=== PATIENT | female | born 1995 | race Caucasian/White ===

== ENCOUNTER 2018-01-05 21:16 | Inpatient (IN) | payer BC, MEDICAID ==
[2018-01-05] MEDS ORDERED: hydrOXYzine HCl 50 MG Tab PO SCH (22:00)
[2018-01-05] MEDS ORDERED: Sodium Chloride 0.9% 10 ML Syringe FLUSH PRN (23:26)
--- NOTE | 2018-01-05 23:26 | PCM.LDHP ---
L&D History of Present Illness - General Date of Service: 01/05/18 Admit Problem/Dx: Patient Status Order with Admit Dx/Problem 01/05/18 21:32 Patient Status [ADT] Routine Admission Diagnosis/Problem Admission Diagnosis/Problem Source of Information: Patient History Limitations: Reports: No Limitations - History of Present Illness Introduction:: 22-year-old MARLEN 01/19/18 estimated gestational age 38 weeks 0 days. Patient presented to labor and delivery with complaint of elevated blood pressure home. Patient also complains of ankle swelling and face swelling no headache blurred vision double vision visual disturbances or right upper quadrant pain. The B strep is positive. Patient is having contractions 5 minutes apart. She is not able to feel the contractions at this time. Blood type B positive, antibody screen negative, hematocrit on 07/08/17 38.1 with hemoglobin of 13.5 platelets 270,000. Rubella positive, hepatitis B surface antigen nonreactive, HIV normal, Chlamydia and GC probe negative. The patient had 1 hour OB glucose screen of 106. 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 (See Below) Other OB/BYN History: LMP December 1 PARA 0 MISCARRIAGE 0 - Past Surgical History GI Surgical History: Reports: Cholecystectomy Social & Family History - Family History Family Medical History: Noncontributory - Tobacco Use Smoking Status *Q: Current Every Day Smoker Years of Tobacco use: 4 Packs/Tins Daily: 0.2 - Recreational Drug Use Recreational Drug Use: No - Living Situation & Occupation Living situation: Reports: Single Occupation: Employed H&P Review of Systems - Review of Systems: Review Of Systems: See Below General: Reports: No Symptoms HEENT: Reports: No Symptoms Pulmonary: Reports: No Symptoms Cardiovascular: Reports: No Symptoms Gastrointestinal: Reports: No Symptoms Genitourinary: Reports: No Symptoms Musculoskeletal: Reports: No Symptoms Skin: Reports: No Symptoms Psychiatric: Reports: No Symptoms Neurological: Reports: No Symptoms Hematologic/Lymphatic: Reports: No Symptoms Immunologic: Reports: No Symptoms L&D Exam - Exam Exam: See Below - OB Specific Fundal Height In cm: 39 Contraction Duration (sec): 60 Contraction Frequency (min): 35 Contraction Intensity: Mild Movement: Active Heart Tones: Present Heart Tones per Min: 135 Heart Rate (FHR) Variability: Moderate (6-25 bmp) Presentation: Vertex - Meyer Score Meyer Score Cervix Position: Posterior Meyer Score Consistency: Soft Meyer Score Effacement: 31-50% Meyer Score Dilation: 1-2 cm Meyer Score 's Station: -2 Meyer Score Total: 5 - Exam General: Alert, Oriented HEENT: Conjunctiva Clear, Mucosa Moist & [place] Neck: Supple, Trachea Midline Lungs: Clear to Auscultation, Normal Respiratory Effort Cardiovascular: Regular Rate, Regular Rhythm GI/Abdominal Exam: Normal Bowel Sounds, Soft, Non-Tender Genitourinary: Normal external exam, Normal bimanual exam, Normal speculum exam Extremities: Normal Inspection, Normal Range of Motion, Non-Tender, Normal Capillary Refill, Pedal Edema (1+) Skin: Warm, Dry, Intact Neurological: Reflexes Equal Bilateral DTR: 1+: Bicep (L), Bicep (R), Achilles (L) (No clonus), Achilles (R) (No clonus ), 3+: Patella (L) (No clonus), Patella (R) (No clonus) Psychiatric: Alert, Normal Affect, Normal Mood - Patient Data Lab Results Last 24 hrs: Laboratory Results - last 24 hr 01/05/18 01/05/18 01/05/18 Range/Units 21:45 21:45 22:45 WBC 9.59 (3.98-10.04) K/mm3 RBC 4.10 (3.98-5.22) M/mm3 Hgb 12.1 (11.2-15.7) gm/L Hct 35.7 (34.1-44.9) % MCV 87.1 (79.4-94.8) fl MCH 29.5 (25.6-32.2) pg MCHC 33.9 (32.2-35.5) g/dl RDW Std Deviation 39.8 (36.4-46.3) fL Plt Count 276 (182-369) K/mm3 MPV 10.7 (9.4-12.3) fl Neut % (Auto) 72.3 H (34.0-71.1) % Lymph % (Auto) 19.9 (19.3-51.7) % [place] % (Auto) 6.6 (4.7-12.5) % Eos % (Auto) 0.9 (0.7-5.8) Baso % (Auto) 0.1 (0.1-1.2) % Neut # (Auto) 6.93 H (1.56-6.13) K/mm3 Lymph # (Auto) 1.91 (1.18-3.74) K/mm3 [place] # (Auto) 0.63 H (0.24-0.36) K/mm3 Eos # (Auto) 0.09 (0.04-0.36) K/mm3 Baso # (Auto) 0.01 (0.01-0.08) K/mm3 BUN 7 (7-18) mg/dL Creatinine 0.6 (0.55-1.02) mg/dL Est Cr Clr Drug Dosing TNP Estimated GFR (MDRD) > 60 (>60) mL/min Uric Acid 3.7 (2.6-6.0) mg/dL AST 13 L (15-37) U/L ALT 21 (14-59) U/L Alkaline Phosphatase 94 (46-116) U/L Lactate Dehydrogenase 138 (81-234) U/L Urine Color Yellow (Yellow) Urine Appearance Clear (Clear) Urine pH 6.0 (5.0-8.0) Ur Specific [place] > or = 1.030 (1.005-1.030) Urine Protein 1+ H (Negative) Urine Glucose (UA) Trace H (Negative) Urine Ketones Trace H (Negative) Urine Occult Blood Negative (Negative) Urine Nitrite Negative (Negative) Urine Bilirubin Negative (Negative) Urine Urobilinogen 0.2 (0.2-1.0) Ur Leukocyte Esterase Negative (Negative) Urine RBC 0-5 (0-5) /hpf Urine WBC 0-5 (0-5) /hpf Ur Epithelial Cells 5-10 H (0-5) /hpf Urine Bacteria Moderate H (FEW) /hpf Urine Mucus Many H (FEW) /hpf Result Diagrams: 01/05/18 21:45 01/05/18 21:45 - Problem List (1) 38 weeks gestation of SNOMED Code(s): 72412307 ICD Code: Z3A.38 - 38 WEEKS GESTATION OF Status: Acute Current Visit: Yes (2) Hypertension affecting in third trimester SNOMED Code(s): 039358025, 727454402 ICD Code: O16.3 - UNSPECIFIED MATERNAL HYPERTENSION, THIRD TRIMESTER Status : Acute Current Visit: Yes Problem List Initiated/Reviewed/Updated: No Orders Last 24hrs: Active Orders 24 hr Category Date Time Status Patient Status [ADT] Routine ADT 01/05/18 21:32 Active Non Stress Test [RC] PER UNIT ROUTINE Care 01/05/18 21:32 Active Vital Signs [RC] PER UNIT ROUTINE Care 01/05/18 21:32 Active Regular Diet [DIET] Diet 01/05/18 Breakfast Active BPP wo NST [US] Stat Exams 01/05/18 21:32 Taken UA W/MICROSCOPIC [URIN] Stat Lab 01/05/18 22:45 Ordered PIH Panel [OM.PC] Stat Oth 01/05/18 21:32 Ordered Resuscitation Status Routine Resus Stat 01/05/18 21:32 Ordered Assessment/Plan Comment:: Will observe overnight extended OB check possible induction in the morning we' ll discuss case with Dr. Herrera.
[2018-01-06] MEDS: Ampicillin 2 GM in Sodium Chloride 0.9% 100 ML IV ONE ×2 (00:14→09:39)
[2018-01-06] MEDS: Lactated Ringers 1,000 ML IV SCH ×4 (00:14→21:17)
[2018-01-06] MEDS ORDERED: hydrOXYzine HCl 50 MG Tab PO ONE ×3 (01:06→04:00)
[2018-01-06] MEDS: Clindamycin Phosphate 900 MG in Sodium Chloride 0.9% 100 ML IV SCH (01:12)
[2018-01-06] MEDS ORDERED: Ampicillin 1 GM in Sodium Chloride 0.9% 100 ML IV SCH (04:00)
--- NOTE | 2018-01-06 07:36 | US ---
Biophysical profile: Multiple real-time images were obtained. Comparison: No previous exam. Dates: Current ultrasound: MARLEN 01/21/18, gestational age 37 weeks 5 days presentation: Cephalic Placenta: Posterior Amniotic fluid: RADHA 12.20 cm Measurements: BPD: 9.27 cm - 37 weeks 5 days Head circumference: 33.1 cm - 37 weeks 6 days Abdominal circumference: 34.08 cm - 38 weeks 0 days Femur length: 7.25 cm - 37 weeks 1 day Estimated weight: 3290 g (7 lbs. 4 oz.), estimated weight at the 61st percentile for age by current ultrasound Heart rate: 146 bpm Cervical length: Not seen, not measured Biophysical profile: movement 2, breathing movement 2, tone 2, amniotic fluid volume 2 Impression: 1. Single intrauterine fetus currently cephalic in presentation. Dates as noted above. 2. 8 out of 8 on biophysical profile. Diagnostic code #1 Agree with preliminary report issued by [facility] ([facility] preliminary report dictated on 01/06/18, 12:11 AM Central Time)
[2018-01-06] MEDS ORDERED: Misoprostol 25 MCG (1/4 of 100 MCG) Tab ONE (08:46)
[2018-01-06] MEDS ORDERED: Sodium Chloride 0.9% 10 ML Syringe FLUSH PRN (08:58)
[2018-01-06] MEDS ORDERED: Nalbuphine 20 MG/1 ML Amp IVPUSH PRN (09:00)
[2018-01-06] MEDS: Misoprostol 25 MCG (1/4 of 100 MCG) Tab VAG SCH ×3 (09:00→17:12)
[2018-01-06] MEDS ORDERED: Penicillin G Potassium 5 MILLUNITS in Sodium Chloride 0.9% 100 ML IV ONE (09:15)
[2018-01-06] MEDS ORDERED: Oxytocin/Lactated Ringers 10 UNIT/1,000 ML BAG IV SCH (09:15)
[2018-01-06] MEDS: Penicillin G Potassium 2.5 MILLUNITS in Sodium Chloride 0.9% 100 ML IV SCH ×3 (13:04→21:02)
--- NOTE | 2018-01-06 14:00 | PCM.PREANE ---
Preanesthetic Assessment - Procedure Proposed Procedure: [facility]ILBUR - Anesthesia/Transfusion/Family Hx Anesthesia History: Prior Anesthesia Without Reaction Transfusion History: No Prior Transfusion(s) - Review of Systems General: No Symptoms Pulmonary: No Symptoms Cardiovascular: No Symptoms Gastrointestinal: Other (GERD) Neurological: No Symptoms Other: Reports: None - Physical Assessment NPO Status Date: 01/06/18 NPO Status Time: 13:00 Pulse: 121 O2 Sat by Pulse Oximetry: 97 Respiratory Rate: 20 Blood Pressure: 158/95 Vital Signs: Last Vital Signs Temp 36.4 C 01/06/18 02:49 Pulse 121 H 01/06/18 09:47 Resp 20 01/06/18 02:49 BP 158/95 H 01/06/18 09:47 Pulse Ox 97 01/06/18 02:49 Height: 1.7 m Weight: 143.789 kg ASA Class: 2 Mental Status: Alert & Oriented x3 Airway Class: Mallampati = 2 Dentition: Reports: Normal Dentition Thyro-Mental Finger Breadths: 3 Mouth Opening Finger Breadths: 3 ROM/Head Extension: Full Lungs: Clear to Auscultation, Normal Respiratory Effort Cardiovascular: Regular Rate, Regular Rhythm - Lab Values: Laboratory Last Values WBC 7.33 K/mm3 (3.98-10.04) 01/06/18 09:32 RBC 3.94 M/mm3 (3.98-5.22) L 01/06/18 09:32 Hgb 11.6 gm/L (11.2-15.7) 01/06/18 09:32 Hct 34.6 % (34.1-44.9) 01/06/18 09:32 MCV 87.8 fl (79.4-94.8) 01/06/18 09:32 MCH 29.4 pg (25.6-32.2) 01/06/18 09:32 MCHC 33.5 g/dl (32.2-35.5) 01/06/18 09:32 RDW Std Deviation 40.2 fL (36.4-46.3) 01/06/18 09:32 Plt Count 250 K/mm3 (182-369) 01/06/18 09:32 MPV 10.5 fl (9.4-12.3) 01/06/18 09:32 Neut % (Auto) 73.3 % (34.0-71.1) H 01/06/18 09:32 Lymph % (Auto) 17.6 % (19.3-51.7) L 01/06/18 09:32 [place] % (Auto) 7.2 % (4.7-12.5) 01/06/18 09:32 Eos % (Auto) 1.5 (0.7-5.8) 01/06/18 09:32 Baso % (Auto) 0.1 % (0.1-1.2) 01/06/18 09:32 Neut # (Auto) 5.37 K/mm3 (1.56-6.13) 01/06/18 09:32 Lymph # (Auto) 1.29 K/mm3 (1.18-3.74) 01/06/18 09:32 [place] # (Auto) 0.53 K/mm3 (0.24-0.36) H 01/06/18 09:32 Eos # (Auto) 0.11 K/mm3 (0.04-0.36) 01/06/18 09:32 Baso # (Auto) 0.01 K/mm3 (0.01-0.08) 01/06/18 09:32 Fibrinogen 458 mg/dL (187-446) H 01/05/18 21:45 Fibrin Degrad Products > 5 but < 20 ug/ml ug/mL (<5) H 01/05/18 21:45 BUN 7 mg/dL (7-18) 01/05/18 21:45 Creatinine 0.6 mg/dL (0.55-1.02) 01/05/18 21:45 Est Cr Clr Drug Dosing TNP 01/05/18 21:45 Estimated GFR (MDRD) > 60 mL/min (>60) 01/05/18 21:45 Uric Acid 3.7 mg/dL (2.6-6.0) 01/05/18 21:45 AST 13 U/L (15-37) L 01/05/18 21:45 ALT 21 U/L (14-59) 01/05/18 21:45 Alkaline Phosphatase 94 U/L (46-116) 01/05/18 21:45 Lactate Dehydrogenase 138 U/L (81-234) 01/05/18 21:45 Urine Color Yellow (Yellow) 01/05/18 22:45 Urine Appearance Clear (Clear) 01/05/18 22:45 Urine pH 6.0 (5.0-8.0) 01/05/18 22:45 Ur Specific [place] > or = 1.030 (1.005-1.030) 01/05/18 22:45 Urine Protein 1+ (Negative) H 01/05/18 22:45 Urine Glucose (UA) Trace (Negative) H 01/05/18 22:45 Urine Ketones Trace (Negative) H 01/05/18 22:45 Urine Occult Blood Negative (Negative) 01/05/18 22:45 Urine Nitrite Negative (Negative) 01/05/18 22:45 Urine Bilirubin Negative (Negative) 01/05/18 22:45 Urine Urobilinogen 0.2 (0.2-1.0) 01/05/18 22:45 Ur Leukocyte Esterase Negative (Negative) 01/05/18 22:45 Urine RBC 0-5 /hpf (0-5) 01/05/18 22:45 Urine WBC 0-5 /hpf (0-5) 01/05/18 22:45 Ur Epithelial Cells 5-10 /hpf (0-5) H 01/05/18 22:45 Urine Bacteria Moderate /hpf (FEW) H 01/05/18 22:45 Urine Mucus Many /hpf (FEW) H 01/05/18 22:45 - Allergies Allergies/Adverse Reactions: Allergies Allergy/AdvReac Type Severity Reaction Status Date / Time No Known Allergies Allergy Verified 01/24/16 12:21 - Blood Blood Available: No Product(s) Available: None - Anesthesia Plan Pre-Op Medication Ordered: None - Acknowledgements Anesthesia Type Planned: Epidural Pt an Appropriate Candidate for the Planned Anesthesia: Yes Alternatives and Risks of Anesthesia Discussed w Pt/Guardian: Yes Pt/Guardian Understands and Agrees with Anesthesia Plan: Yes PreAnesthesia Questionnaire HEENT History: Reports: Impaired Vision Other 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 History: 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 glasses 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 OB/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 History: LMP December 1 PARA 0 MISCARRIAGE 0 Musculoskeletal History: Reports: Other (See Below) Other Musculoskeletal History: hx fx arm as child - Past Surgical History GI Surgical History: Reports: Cholecystectomy Musculoskeletal Surgical History: Reports: None - SUBSTANCE USE Smoking Status *Q: Current Every Day Smoker Tobacco Use Within Last Twelve Months: Cigarettes Second Hand Smoke Exposure: No Recreational Drug Use History: No - HOME MEDS Home Medications: Home Meds oxyCODONE HCl/Acetaminophen [Percocet 5-325 mg Tablet] 1 - 2 each PO Q4H PRN # 10 tablet 01/24/16 [Rx] - CURRENT (IN HOUSE) MEDS Current Meds: Current Medications Hydroxyzine HCl (Atarax) 50 mg PO BEDTIME GORDY Lactated Ringer's (Ringers, Lactated) 1,000 mls @ 150 mls/hr IV ASDIRECTED GORDY Last Admin: 01/06/18 00:14 Dose: 150 mls/hr Lactated Ringer's (Ringers, Lactated) 1,000 mls @ 100 mls/hr IV ASDIRECTED GORDY Last Admin: 01/06/18 10:24 Dose: 100 mls/hr Penicillin G Potassium 2.5 (millunits/ Sodium Chloride) 100 mls @ 100 mls/hr IV Q4H GORDY Last Admin: 01/06/18 13:04 Dose: 100 mls/hr Oxytocin/Lactated Ringer's (Pitocin In Lr 10 Units/1,000 Ml) 10 unit in 1,000 mls @ 12 mls/hr IV TITRATE GORD[facility]; Protocol Misoprostol (Cytotec) 25 mcg VAG Q4H GORDY Stop: 01/06/18 17:06 Last Admin: 01/06/18 12:58 Dose: 25 mcg Nalbuphine HCl (Nubain) 10 mg IVPUSH Q2H PRN PRN Reason: Pain (moderate 4-6) Sodium Chloride (Saline Flush) 10 ml FLUSH ASDIRECTED PRN PRN Reason: Keep Vein Open Sodium Chloride (Saline Flush) 10 ml FLUSH ASDIRECTED PRN PRN Reason: Keep Vein Open Discontinued Medications Hydroxyzine HCl (Atarax) 50 mg PO ONETIME ONE Stop: 01/06/18 01:31 Hydroxyzine HCl (Atarax) 50 mg PO BEDTIME GORDY Hydroxyzine HCl (Atarax) 50 mg PO BEDTIME ONE Stop: 01/06/18 01:07 Last Admin: 01/06/18 01:31 Dose: 50 mg Hydroxyzine HCl (Atarax) 50 mg PO ONETIME ONE Stop: 01/06/18 04:01 Last Admin: 01/06/18 10:26 Dose: Not Given Ampicillin Sodium 2 gm/ Sodium (Chloride) 100 mls @ 200 mls/hr IV ONETIME ONE Stop: 01/05/18 23:54 Last Admin: 01/06/18 09:39 Dose: Not Given Ampicillin Sodium 1 gm/ Sodium (Chloride) 100 mls @ 200 mls/hr IV Q4H GORD[facility] Clindamycin Phosphate 900 mg/ (Sodium Chloride) 106 mls @ 100 mls/hr IV Q8H GORDY Last Admin: 01/06/18 01:12 Dose: 100 mls/hr Penicillin G Potassium 5 (millunits/ Sodium Chloride) 100 mls @ 55 mls/hr IV ONETIME ONE Stop: 01/06/18 11:04 Last Admin: 01/06/18 09:37 Dose: 100 mls/hr Misoprostol (Cytotec) Confirm Administered Dose 25 mcg .ROUTE .STK-MED ONE Stop: 01/06/18 08:47 Last Admin: 01/06/18 10:25 Dose: Not Given
[2018-01-06] MEDS ORDERED: ePHEDrine 50 MG/ML SDV IVPUSH PRN (14:24)
[2018-01-06] MEDS ORDERED: diphenhydrAMINE 50 MG/ML SDV IVPUSH PRN (14:24)
[2018-01-06] MEDS ORDERED: fentaNYL 100 MCG/2 ML SDV EPIDUR PRN (14:24)
[2018-01-06] MEDS: Bupivacaine/fentaNYL/NS 100 ML Bag EPIDUR SCH (18:28)
--- NOTE | 2018-01-06 19:23 | PCM.SN ---
- Free Text/Narrative Note: 0830 Auguste bulb placement Speculum placed. Auguste bulb inserted into cervix under direct visualization. Inflated with 50 ML fluid. Speculum removed. Cytotec placed 25 mcg\\ Patient tolerated well.
[2018-01-06] MEDS ORDERED: hydrOXYzine HCl 50 MG Tab PO SCH (21:00)
[2018-01-07] MEDS: Bupivacaine/fentaNYL/NS 100 ML Bag EPIDUR SCH (00:03)
[2018-01-07] MEDS: Penicillin G Potassium 2.5 MILLUNITS in Sodium Chloride 0.9% 100 ML IV SCH ×2 (00:44→05:06)
[2018-01-07] MEDS ORDERED: Bupivacaine 0.25% 10 ML SDV ONE (01:00)
[2018-01-07] MEDS ORDERED: Lanolin 100% Cream 7 GM Tube TOP PRN (07:41)
[2018-01-07] MEDS ORDERED: Benzocaine/Menthol 20%-0.5% Spray 56 GM Canister TOP PRN (07:41)
[2018-01-07] MEDS ORDERED: Docusate Sodium 100 MG Cap PO PRN (07:41)
[2018-01-07] MEDS ORDERED: Acetaminophen 325 MG Tab PO PRN (07:41)
[2018-01-07] MEDS ORDERED: Witch Hazel Medicated Pads 100/Jar TOP PRN (07:41)
[2018-01-07] MEDS: Clindamycin Phosphate 900 MG in Sodium Chloride 0.9% 100 ML IV SCH (18:28)
[2018-01-07] MEDS: Ibuprofen 600 MG Tab PO PRN (20:14)
--- NOTE | 2018-01-08 07:32 | PCM48HPAN ---
Post Anesthesia Note - EVALUATION WITHIN 48HRS OF ANESTHETIC Vital Signs in Normal Range: Yes Patient Participated in Evaluation: Yes Respiratory Function Stable: Yes Airway Patent: Yes Cardiovascular Function Stable: Yes Hydration Status Stable: Yes Pain Control Satisfactory: Yes Nausea and Vomiting Control Satisfactory: Yes Mental Status Recovered: Yes Pulse Rate: 90 Resp Rate: 18 Temperature: 36.2 C Blood Pressure: 120/52 - COMMENTS/OBSERVATIONS Free Text/Narrative:: no anesthesia complications noted
[2018-01-08] MEDS: Ibuprofen 600 MG Tab PO PRN (09:19)
[2018-01-08 09:49] VITALS: BP 159/89
--- NOTE | 2018-01-08 10:45 | PCM.DCSUM1 ---
Discharge Summary - Discharge Data Discharge Date: 01/08/18 Discharge Disposition: Home, Self-Care 01 Condition: Good - Patient Summary/Data Hospital Course: Admitted with elevated bps by Dr. Stewart. Did well, continued to be high so began induction of labor. Progressed to without difficulty. - Patient Instructions Diet: Usual Diet as Tolerated Activity: No Strenuous Activities Activity, Other: pelvic rest Driving: May Drive Today Notify Provider of: Fever, Increased Pain, Swelling and Redness, Drainage, Nausea and/or Vomiting - Discharge Plan Home Medications: Home Meds oxyCODONE HCl/Acetaminophen [Percocet 5-325 mg Tablet] 1 - 2 each PO Q4H PRN # 10 tablet 01/24/16 [Rx] Patient Handouts: Steps to Quit Smoking Referrals: Gloria Herrera MD [Physician] - (2 weeks) - Discharge Summary/Plan Comment DC Time >30 min.: No - General Info Date of Service: 01/08/18 Functional Status: Reports: Pain Controlled - Review of Systems General: Reports: No Symptoms HEENT: Reports: No Symptoms Pulmonary: Reports: No Symptoms Cardiovascular: Reports: No Symptoms Gastrointestinal: Reports: No Symptoms Genitourinary: Reports: No Symptoms Musculoskeletal: Reports: No Symptoms Skin: Reports: No Symptoms Neurological: Reports: No Symptoms Psychiatric: Reports: No Symptoms - Patient Data Vitals - Most Recent: Last Vital Signs Temp 37.3 C 01/08/18 09:45 Pulse 94 01/08/18 09:45 Resp 18 01/08/18 09:45 BP 159/89 H 01/08/18 09:45 Pulse Ox 97 01/08/18 09:45 Weight - Most Recent: 143.789 kg I&O - Last 24 hours: Intake & Output 01/07/18 01/08/18 01/08/18 22:59 06:59 14:59 Intake Total 320 120 Balance 320 120 ARLETTE Results - Last 24 hrs: Microbiology 01/05/18 22:45 Urine Culture - Final Urine, Clean Catch Beta Streptococcus Group B Med Orders - Current: Current Medications Acetaminophen (Tylenol) 650 mg PO Q6H PRN PRN Reason: mild pain or fever Benzocaine/Menthol (Dermoplast Pain Relief [place]) 0 gm TOP ASDIRECTED PRN PRN Reason: Perineal Comfort Measure Last Admin: 01/07/18 18:36 Dose: 1 applic Docusate Sodium (Colace) 100 mg PO BID PRN PRN Reason: Constipation Last Admin: 01/08/18 09:18 Dose: 100 mg Emollient Ointment (Lansinoh Hpa) 0 gm TOP ASDIRECTED PRN PRN Reason: Sore Nipples Ibuprofen (Motrin) 600 mg PO Q6H PRN PRN Reason: Mild pain or fever Last Admin: 01/08/18 09:19 Dose: 600 mg [place] (Tucks) 1 pad TOP ASDIRECTED PRN PRN Reason: Hemorrhoid pain Last Admin: 01/07/18 18:37 Dose: 1 applic Discontinued Medications Diphenhydramine HCl (Benadryl) 25 mg IVPUSH Q6H PRN PRN Reason: Pruritis Ephedrine Sulfate (Ephedrine Sulfate) 5 mg IVPUSH ASDIRECTED PRN PRN Reason: Hypotension Fentanyl (Sublimaze) 100 mcg EPIDUR Q3H PRN PRN Reason: Pain Last Admin: 01/06/18 18:27 Dose: 100 mcg Fentanyl/Bupivacaine HCl (Fentanyl/Bupivacaine/Ns 2 Mcg-0.125% 100 Ml) 100 ml EPIDUR ASDIRECTED GORDY Last Admin: 01/07/18 00:03 Dose: 100 ml Hydroxyzine HCl (Atarax) 50 mg PO BEDTIME [facility] Last Admin: 01/06/18 21:30 Dose: Not Given Hydroxyzine HCl (Atarax) 50 mg PO ONETIME ONE Stop: 01/06/18 01:31 Last Admin: 01/07/18 18:26 Dose: Not Given Hydroxyzine HCl (Atarax) 50 mg PO BEDTIME [facility] Hydroxyzine HCl (Atarax) 50 mg PO BEDTIME ONE Stop: 01/06/18 01:07 Last Admin: 01/06/18 01:31 Dose: 50 mg Hydroxyzine HCl (Atarax) 50 mg PO ONETIME ONE Stop: 01/06/18 04:01 Last Admin: 01/06/18 10:26 Dose: Not Given Ampicillin Sodium 2 gm/ Sodium (Chloride) 100 mls @ 200 mls/hr IV ONETIME ONE Stop: 01/05/18 23:54 Last Admin: 01/06/18 09:39 Dose: Not Given Ampicillin Sodium 1 gm/ Sodium (Chloride) 100 mls @ 200 mls/hr IV Q4H [facility] Lactated Ringer's (Ringers, Lactated) 1,000 mls @ 150 mls/hr IV ASDIRECTED [facility] Last Admin: 01/06/18 18:16 Dose: 999 mls/hr Clindamycin Phosphate 900 mg/ (Sodium Chloride) 106 mls @ 100 mls/hr IV Q8H [facility] Last Admin: 01/07/18 18:28 Dose: Not Given Lactated Ringer's (Ringers, Lactated) 1,000 mls @ 100 mls/hr IV ASDIRECTED [facility] Last Admin: 01/06/18 21:17 Dose: 100 mls/hr Penicillin G Potassium 5 (millunits/ Sodium Chloride) 100 mls @ 55 mls/hr IV ONETIME ONE Stop: 01/06/18 11:04 Last Admin: 01/06/18 09:37 Dose: 100 mls/hr Penicillin G Potassium 2.5 (millunits/ Sodium Chloride) 100 mls @ 100 mls/hr IV Q4H [facility] Last Admin: 01/07/18 05:06 Dose: 100 mls/hr Oxytocin/Lactated Ringer's (Pitocin In Lr 10 Units/1,000 Ml) 10 unit in 1,000 mls @ 12 mls/hr IV TITRATE [facility]; Protocol Last Titration: 01/07/18 06:45 Dose: Infused Misoprostol (Cytotec) Confirm Administered Dose 25 mcg .ROUTE .STK-MED ONE Stop: 01/06/18 08:47 Last Admin: 01/06/18 10:25 Dose: Not Given Misoprostol (Cytotec) 25 mcg VAG Q4H [facility] Stop: 01/06/18 17:06 Last Admin: 01/06/18 17:12 Dose: Not Given Nalbuphine HCl (Nubain) 10 mg IVPUSH Q2H PRN PRN Reason: Pain (moderate 4-6) Sodium Chloride (Saline Flush) 10 ml FLUSH ASDIRECTED PRN PRN Reason: Keep Vein Open Sodium Chloride (Saline Flush) 10 ml FLUSH ASDIRECTED PRN PRN Reason: Keep Vein Open - Exam General: Reports: Alert, Oriented HEENT: Reports: Pupils Equal, Pupils Reactive, EOMI, Mucous Membr. Moist/[place] Neck: Reports: Supple Lungs: Reports: Clear to Auscultation, Normal Respiratory Effort Cardiovascular: Reports: Regular Rate, Regular Rhythm GI/Abdominal Exam: Normal Bowel Sounds, Soft, Non-Tender, No Organomegaly, No Distention, No Abnormal Bruit, No Mass, Pelvis Stable Back Exam: Reports: Normal Inspection, Full Range of Motion Extremities: Normal Inspection, Normal Range of Motion, Non-Tender, No Pedal Edema, Normal Capillary Refill Skin: Reports: Warm, Dry, Intact Wound/Incisions: Reports: Healing Well Neurological: Reports: No New Focal Deficit Psy/Mental Status: Reports: Alert, Normal Affect, Normal Mood
== END 2018-01-08 11:50 | disposition home or self-care (01) | DRG 560 ==
LOC: JD.OBCHECK 21:16 → JD.OB 21:21 → JD.OBCHECK 01-06 10:17 → JD.OB 01-06 10:18 → OBSVTOIN 01-07 06:04 → JD.OB 01-07 06:05
PROVIDERS: ADMIT Obstetrics & Gynecology; ATTEND Obstetrics & Gynecology
PROC: 00HU33Z Insertion of Infusion Device into Spinal Canal, Percutaneous Approach (ICD-10-PCS; 2018-01-06)
PROC: 3E0R3BZ Introduction of Anesthetic Agent into Spinal Canal, Percutaneous Approach (ICD-10-PCS; 2018-01-06)
PROC: 10H07YZ Insertion of Other Device into Products of Conception, Via Natural or Artificial Opening (ICD-10-PCS; principal; 2018-01-07)
PROC: 10907ZC Drainage of Amniotic Fluid, Therapeutic from Products of Conception, Via Natural or Artificial Opening (ICD-10-PCS; principal; 2018-01-07)
PROC: 0KQM0ZZ Repair Perineum Muscle, Open Approach (ICD-10-PCS; principal; 2018-01-07)
PROC: 10E0XZZ Delivery of Products of Conception, External Approach (ICD-10-PCS; principal; 2018-01-07)
DX: O99.334 Smoking (tobacco) complicating childbirth (principal); F17.200 Nicotine dependence, unspecified, uncomplicated; O99.824 Streptococcus B carrier state complicating childbirth; O16.4 Unspecified maternal hypertension, complicating childbirth; Z3A.38 38 weeks gestation of pregnancy; Z37.0 Single live birth; Z90.49 Acquired absence of other specified parts of digestive tract; O70.1 Second degree perineal laceration during delivery
CPT/HCPCS: 36415; 51702; 59025; 59300; 59409; 76816; 76819; 76819-26; 81001; 82565; 83615; 84075; 84450; 84460; 84520; 84550; 85025; 85362; 85384; 87086; A9270-GY; J0290; J2540; J2590; J3010; J7030; J7120

== ENCOUNTER 2019-09-03 02:50 | Inpatient (IN) | payer BC, OTHER ==
[~2019-09-03 02:50] MED LIST: Bupivacaine 0.25% 10 ML SDV ONE; Lidocaine 1% 2 ML SDV ONE
[2019-09-03] MEDS ORDERED: Sodium Chloride 0.9% 10 ML Syringe FLUSH PRN (04:40)
[2019-09-03] MEDS ORDERED: Ondansetron 4 MG/2 ML SDV IVPUSH PRN ×2 (04:40→08:04)
[2019-09-03] MEDS ORDERED: Acetaminophen 325 MG Tab PO PRN ×2 (04:40→13:28)
[2019-09-03] MEDS ORDERED: Calcium Carbonate 500 MG Tab.Chew PO PRN (04:40)
[2019-09-03] MEDS ORDERED: Nalbuphine 10 MG/ML Syringe IVPUSH PRN (04:40)
[2019-09-03] MEDS ORDERED: Oxytocin/Lactated Ringers 10 UNIT/1,000 ML BAG IV SCH ×2 (04:45)
[2019-09-03] MEDS: Lactated Ringers 1,000 ML IV SCH ×3 (05:46→08:46)
--- NOTE | 2019-09-03 07:14 | PCM.LDHP ---
L&D History of Present Illness - General Date of Service: 09/03/19 Admit Problem/Dx: Patient Status Order with Admit Dx/Problem 09/03/19 03:45 Patient Status [ADT] Routine Admission Diagnosis/Problem Admission Diagnosis/Problem Source of Information: Patient History Limitations: Reports: No Limitations - History of Present Illness Introduction:: Patient is a 24-year-old 0-1 at 39 and one sevenths weeks who presents this morning for spontaneous rupture of membranes. Estimates that water broke around 2 AM. Has been having some contractions, but nothing significantly bothersome. 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 : 4 Para: 1 LMP (Approximate): Psychiatric History: Reports: Depression - Past Surgical History GI Surgical History: Reports: Cholecystectomy Musculoskeletal Surgical History: Reports: Other (See Below) (Right elbow procedure) Social & Family History - Family History Family Medical History: Noncontributory - Tobacco Use Smoking Status *Q: Former Smoker Years of Tobacco use: 2 Used Tobacco, but Quit: Yes Month/Year Tobacco Last Used: 12/26 Second Hand Smoke Exposure: No - Alcohol Use Alcohol Use History: No - Recreational Drug Use Recreational Drug Use: No - Living Situation & Occupation Living situation: Reports: Single Occupation: Employed H&P Review of Systems - Review of Systems: Review Of Systems: See Below General: Reports: No Symptoms Pulmonary: Reports: No Symptoms Cardiovascular: Reports: No Symptoms Gastrointestinal: Reports: No Symptoms Genitourinary: Reports: No Symptoms Musculoskeletal: Reports: No Symptoms Psychiatric: Reports: No Symptoms Neurological: Reports: No Symptoms L&D Exam - Exam Exam: See Below - Vital Signs Vital Signs: Last Vital Signs Temp 36.6 C 09/03/19 04:41 Pulse 105 H 09/03/19 04:41 Resp 17 12/26/19 04:41 BP 136/74 09/03/19 04:41 Pulse Ox 98 09/03/19 04:41 Weight: 140.358 kg - OB Specific Contraction Intensity: Mild to Moderate Movement: Active Heart Tones: Present Heart Tones per Min: 130 Heart Rate (FHR) Variability: Moderate (6-25 bmp) Presentation: Vertex - Meyer Score Meyer Score Cervix Position: Midposition Meyer Score Consistency: Soft Meyer Score Effacement: 51-70% Meyer Score Dilation: 3-4 cm Meyer Score Infant's Station: -2 Meyer Score Total: 8 - Exam General: Alert, Oriented, Cooperative Lungs: Clear to Auscultation, Normal Respiratory Effort Cardiovascular: Regular Rate, Regular Rhythm GI/Abdominal Exam: Soft, Non-Tender Genitourinary: Normal external exam Extremities: Normal Inspection Skin: Warm, Dry, Intact - Patient Data Lab Results Last 24 hrs: Laboratory Results - last 24 hr 09/03/19 Range/Units 04:55 WBC 10.94 H (3.98-10.04) K/mm3 RBC 4.21 (3.98-5.22) M/mm3 Hgb 12.3 (11.2-15.7) gm/dl Hct 36.0 (34.1-44.9) % MCV 85.5 (79.4-94.8) fl MCH 29.2 (25.6-32.2) pg MCHC 34.2 (32.2-35.5) g/dl RDW Std Deviation 39.8 (36.4-46.3) fL Plt Count 254 (182-369) K/mm3 MPV 11.2 (9.4-12.3) fl Neut % (Auto) 70.1 (34.0-71.1) % Lymph % (Auto) 22.2 (19.3-51.7) % [place] % (Auto) 6.3 (4.7-12.5) % Eos % (Auto) 1.1 (0.7-5.8) Baso % (Auto) 0.1 (0.1-1.2) % Neut # (Auto) 7.67 H (1.56-6.13) K/mm3 Lymph # (Auto) 2.43 (1.18-3.74) K/mm3 [place] # (Auto) 0.69 H (0.24-0.36) K/mm3 Eos # (Auto) 0.12 (0.04-0.36) K/mm3 Baso # (Auto) 0.01 (0.01-0.08) K/mm3 Result Diagrams: 09/03/19 04:55 - Problem List (1) 39 weeks gestation of SNOMED Code(s): 66657986 ICD Code: Z3A.39 - 39 WEEKS GESTATION OF Status: Acute Current Visit: Yes (2) Spontaneous rupture of amniotic membranes SNOMED Code(s): 943335601 ICD Code: PZA2905 - Status: Acute Current Visit: Yes Problem List Initiated/Reviewed/Updated: Yes Orders Last 24hrs: Active Orders 24 hr Category Date Time Status Patient Status [ADT] Routine ADT 09/03/19 03:45 Active Activity as Tolerated [RC] PFP Care 09/03/19 04:41 Active Communication Order [RC] ASDIRECTED Care 09/03/19 04:41 Active Heart Tones [RC] ASDIRECTED Care 09/03/19 04:41 Active Non Stress Test [RC] PER UNIT ROUTINE Care 09/03/19 04:41 Active Notify Provider [RC] PFP Care 09/03/19 04:41 Active Notify Provider [RC] PRN Care 09/03/19 04:41 Active Peripheral IV Care [RC] . DIRECTED Care 09/03/19 04:41 Active Vital Signs [RC] PER UNIT ROUTINE Care 09/03/19 04:41 Active Regular Diet [DIET] Diet 09/03/19 Breakfast Active RAPID PLASMA REAGIN,RPR [CHEM] Routine Lab 09/03/19 04:55 Received Acetaminophen [Tylenol] Med 09/03/19 04:40 Active 650 mg PO Q4H PRN Calcium Carbonate [Tums] Med 09/03/19 04:40 Active 1,000 mg PO Q2H PRN Lactated Ringers [Ringers, Lactated] 1,000 ml Med 09/03/19 04:45 Active IV ASDIRECTED Nalbuphine [Nubain] Med 09/03/19 04:40 Active 10 mg IVPUSH Q2H PRN Ondansetron [Zofran] Med 09/03/19 04:40 Active 4 mg IVPUSH Q4H PRN Oxytocin/Lactated Ringers [Pitocin in LR 10 Units/1,000 Med 09/03/19 04:45 Active ML] 10 unit in 1,000 ml IV .CONTINUOUS Oxytocin/Lactated Ringers [Pitocin in LR 10 Units/1,000 Med 09/03/19 04:45 Active ML] 10 unit in 1,000 ml IV TITRATE Sodium Chloride 0.9% [Saline Flush] Med 09/03/19 04:40 Active 10 ml FLUSH ASDIRECTED PRN Electronic Heart Tones Ext w TOCO [WOMSER] Oth 09/03/19 04:41 Ordered Routine Electronic Heart Tones Internal [WOMSER] Per Unit Oth 09/03/19 04:41 Ordered Routine Peripheral IV Insertion Adult [OM.PC] Routine Oth 09/03/19 04:41 Ordered Resuscitation Status Routine Resus Stat 09/03/19 04:40 Ordered Medication Orders Acetaminophen (Tylenol) 650 mg PO Q4H PRN PRN Reason: Pain (Mild 1-3) and fever Calcium Carbonate/Glycine (Tums) 1,000 mg PO Q2H PRN PRN Reason: Indigestion Lactated Ringer's (Ringers, Lactated) 1,000 mls @ 100 mls/hr IV ASDIRECTED GORDY Last Admin: 09/03/19 05:46 Dose: 100 mls/hr Oxytocin/Lactated Ringer's (Pitocin In Lr 10 Units/1,000 Ml) 10 unit in 1,000 mls @ 12 mls/hr IV TITRATE GORDY; Protocol Oxytocin/Lactated Ringer's (Pitocin In Lr 10 Units/1,000 Ml) 10 unit in 1,000 mls @ 500 mls/hr IV .CONTINUOUS GORDY Nalbuphine HCl (Nubain) 10 mg IVPUSH Q2H PRN PRN Reason: Pain Ondansetron HCl (Zofran) 4 mg IVPUSH Q4H PRN PRN Reason: Nausea/Vomiting Sodium Chloride (Saline Flush) 10 ml FLUSH ASDIRECTED PRN PRN Reason: Keep Vein Open Assessment/Plan Comment:: * Labs to be done * GBS negative, no need for antibiotics * Will start pitocin for augmentation as no significant contractions as of yet * Pain management per patient preference * Anticipate
[2019-09-03] MEDS ORDERED: fentaNYL 100 MCG/2 ML SDV ONE (08:00)
[2019-09-03] MEDS ORDERED: fentaNYL/Bupivacaine/NS 2 MCG-0.125% 250 ML EPIDUR PRN (08:04)
[2019-09-03] MEDS ORDERED: fentaNYL 100 MCG/2 ML SDV EPIDUR PRN (08:04)
[2019-09-03] MEDS ORDERED: ePHEDrine 50 MG/ML SDV IVPUSH PRN (08:04)
--- NOTE | 2019-09-03 08:05 | PCM.PREANE ---
Preanesthetic Assessment - Procedure Proposed Procedure: JEREMIAH - Anesthesia/Transfusion/Family Hx Anesthesia History: Prior Anesthesia Without Reaction Family History of Anesthesia Reaction: No Transfusion History: No Prior Transfusion(s) Intubation History: Unknown - Review of Systems General: No Symptoms Pulmonary: Cough Cardiovascular: No Symptoms Gastrointestinal: No Symptoms Neurological: No Symptoms Other: Reports: None - Physical Assessment NPO Status Date: 09/03/19 Vital Signs: Last Vital Signs Temp 36.6 C 09/03/19 04:41 Pulse 105 H 09/03/19 04:41 Resp 17 09/03/19 04:41 BP 136/74 09/03/19 04:41 Pulse Ox 98 09/03/19 04:41 Height: 1.7 m Weight: 140.358 kg ASA Class: 2 Mental Status: Alert & Oriented x3 Airway Class: Mallampati = 2 Dentition: Reports: Normal Dentition (piercing inner upper lip, leonor piercing ) Thyro-Mental Finger Breadths: 3 Mouth Opening Finger Breadths: 5 ROM/Head Extension: Full Lungs: Clear to Auscultation, Normal Respiratory Effort Cardiovascular: Regular Rate, Regular Rhythm - Lab Values: Laboratory Last Values WBC 10.94 K/mm3 (3.98-10.04) H 09/03/19 04:55 RBC 4.21 M/mm3 (3.98-5.22) 09/03/19 04:55 Hgb 12.3 gm/dl (11.2-15.7) 09/03/19 04:55 Hct 36.0 % (34.1-44.9) 09/03/19 04:55 MCV 85.5 fl (79.4-94.8) 09/03/19 04:55 MCH 29.2 pg (25.6-32.2) 09/03/19 04:55 MCHC 34.2 g/dl (32.2-35.5) 09/03/19 04:55 RDW Std Deviation 39.8 fL (36.4-46.3) 09/03/19 04:55 Plt Count 254 K/mm3 (182-369) 09/03/19 04:55 MPV 11.2 fl (9.4-12.3) 09/03/19 04:55 Neut % (Auto) 70.1 % (34.0-71.1) 09/03/19 04:55 Lymph % (Auto) 22.2 % (19.3-51.7) 09/03/19 04:55 [place] % (Auto) 6.3 % (4.7-12.5) 09/03/19 04:55 Eos % (Auto) 1.1 (0.7-5.8) 09/03/19 04:55 Baso % (Auto) 0.1 % (0.1-1.2) 09/03/19 04:55 Neut # (Auto) 7.67 K/mm3 (1.56-6.13) H 09/03/19 04:55 Lymph # (Auto) 2.43 K/mm3 (1.18-3.74) 09/03/19 04:55 [place] # (Auto) 0.69 K/mm3 (0.24-0.36) H 09/03/19 04:55 Eos # (Auto) 0.12 K/mm3 (0.04-0.36) 09/03/19 04:55 Baso # (Auto) 0.01 K/mm3 (0.01-0.08) 09/03/19 04:55 - Allergies Allergies/Adverse Reactions: Allergies Allergy/AdvReac Type Severity Reaction Status Date / Time No Known Allergies Allergy Verified 09/03/19 04:32 - Blood Blood Available: No - Anesthesia Plan Pre-Op Medication Ordered: None - Acknowledgements Anesthesia Type Planned: Epidural Pt an Appropriate Candidate for the Planned Anesthesia: Yes Alternatives and Risks of Anesthesia Discussed w Pt/Guardian: Yes Pt/Guardian Understands and Agrees with Anesthesia Plan: Yes PreAnesthesia Questionnaire - Past Health History Medical/Surgical History: Denies Medical/Surgical History HEENT History: Reports: Impaired Vision 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 Other OB/BYN History: LMP December 1 PARA 0 MISCARRIAGE 0 Musculoskeletal History: Reports: Other (See Below) Other Musculoskeletal History: hx fx arm as child - Past Surgical History GI Surgical History: Reports: Cholecystectomy Musculoskeletal Surgical History: Reports: None - SUBSTANCE USE Smoking Status *Q: Former Smoker Tobacco Use Within Last Twelve Months: Cigarettes Second Hand Smoke Exposure: No Recreational Drug Use History: No - HOME MEDS Home Medications: Home Meds Aspirin [Lo-Dose Aspirin EC] 81 mg PO DAILY 09/03/19 [History] Omeprazole 20 mg PO ONETIME 09/03/19 [History] [id number]/Iron Fumarate/FA/DSS [ 19 Tablet] 1 each PO DAILY 09/03/19 [ History] - CURRENT (IN HOUSE) MEDS Current Meds: Current Medications Acetaminophen (Tylenol) 650 mg PO Q4H PRN PRN Reason: Pain (Mild 1-3) and fever Calcium Carbonate/Glycine (Tums) 1,000 mg PO Q2H PRN PRN Reason: Indigestion Lactated Ringer's (Ringers, Lactated) 1,000 mls @ 100 mls/hr IV ASDIRECTED GORDY Last Admin: 09/03/19 05:46 Dose: 100 mls/hr Oxytocin/Lactated Ringer's (Pitocin In Lr 10 Units/1,000 Ml) 10 unit in 1,000 mls @ 12 mls/hr IV TITRATE GORDY; Protocol Oxytocin/Lactated Ringer's (Pitocin In Lr 10 Units/1,000 Ml) 10 unit in 1,000 mls @ 500 mls/hr IV .CONTINUOUS OGRDY Nalbuphine HCl (Nubain) 10 mg IVPUSH Q2H PRN PRN Reason: Pain Ondansetron HCl (Zofran) 4 mg IVPUSH Q4H PRN PRN Reason: Nausea/Vomiting Sodium Chloride (Saline Flush) 10 ml FLUSH ASDIRECTED PRN PRN Reason: Keep Vein Open
--- NOTE | 2019-09-03 08:06 | PCM.PREANE ---
Preanesthetic Assessment - Anesthesia/Transfusion/Family Hx Anesthesia History: Prior Anesthesia Without Reaction Family History of Anesthesia Reaction: No Transfusion History: No Prior Transfusion(s) Intubation History: Unknown - Review of Systems Gastrointestinal: No Symptoms (GERD) Other: Reports: None (On ASA) - Physical Assessment NPO Status Date: 09/03/19 Vital Signs: Last Vital Signs Temp 36.6 C 09/03/19 04:41 Pulse 105 H 09/03/19 04:41 Resp 17 09/03/19 04:41 BP 136/74 09/03/19 04:41 Pulse Ox 98 09/03/19 04:41 Height: 1.7 m Weight: 140.358 kg ASA Class: 2 Mental Status: Alert & Oriented x3 - Lab Values: Laboratory Last Values WBC 10.94 K/mm3 (3.98-10.04) H 09/03/19 04:55 RBC 4.21 M/mm3 (3.98-5.22) 09/03/19 04:55 Hgb 12.3 gm/dl (11.2-15.7) 09/03/19 04:55 Hct 36.0 % (34.1-44.9) 09/03/19 04:55 MCV 85.5 fl (79.4-94.8) 09/03/19 04:55 MCH 29.2 pg (25.6-32.2) 09/03/19 04:55 MCHC 34.2 g/dl (32.2-35.5) 09/03/19 04:55 RDW Std Deviation 39.8 fL (36.4-46.3) 09/03/19 04:55 Plt Count 254 K/mm3 (182-369) 09/03/19 04:55 MPV 11.2 fl (9.4-12.3) 09/03/19 04:55 Neut % (Auto) 70.1 % (34.0-71.1) 09/03/19 04:55 Lymph % (Auto) 22.2 % (19.3-51.7) 09/03/19 04:55 [place] % (Auto) 6.3 % (4.7-12.5) 09/03/19 04:55 Eos % (Auto) 1.1 (0.7-5.8) 09/03/19 04:55 Baso % (Auto) 0.1 % (0.1-1.2) 09/03/19 04:55 Neut # (Auto) 7.67 K/mm3 (1.56-6.13) H 09/03/19 04:55 Lymph # (Auto) 2.43 K/mm3 (1.18-3.74) 09/03/19 04:55 [place] # (Auto) 0.69 K/mm3 (0.24-0.36) H 09/03/19 04:55 Eos # (Auto) 0.12 K/mm3 (0.04-0.36) 09/03/19 04:55 Baso # (Auto) 0.01 K/mm3 (0.01-0.08) 09/03/19 04:55 Above labs reviewed and noted and within acceptable ranges to proceed with epidural. 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: LMP December 1 PARA 0 MISCARRIAGE 0 Musculoskeletal History: Reports: Other (See Below) Other Musculoskeletal History: hx fx arm as child - Past Surgical History GI Surgical History: Reports: Cholecystectomy Musculoskeletal Surgical History: Reports: None - SUBSTANCE USE Smoking Status *Q: Former Smoker Tobacco Use Within Last Twelve Months: Cigarettes Second Hand Smoke Exposure: No Recreational Drug Use History: No - HOME MEDS Home Medications: Home Meds Aspirin [Lo-Dose Aspirin EC] 81 mg PO DAILY 09/03/19 [History] Omeprazole 20 mg PO ONETIME 09/03/19 [History] [id number]/Iron Fumarate/FA/DSS [ 19 Tablet] 1 each PO DAILY 09/03/19 [ History] - CURRENT (IN HOUSE) MEDS Current Meds: Current Medications Acetaminophen (Tylenol) 650 mg PO Q4H PRN PRN Reason: Pain (Mild 1-3) and fever Calcium Carbonate/Glycine (Tums) 1,000 mg PO Q2H PRN PRN Reason: Indigestion Lactated Ringer's (Ringers, Lactated) 1,000 mls @ 100 mls/hr IV ASDIRECTED GORDY Last Admin: 09/03/19 05:46 Dose: 100 mls/hr Oxytocin/Lactated Ringer's (Pitocin In Lr 10 Units/1,000 Ml) 10 unit in 1,000 mls @ 12 mls/hr IV TITRATE GORDY; Protocol Oxytocin/Lactated Ringer's (Pitocin In Lr 10 Units/1,000 Ml) 10 unit in 1,000 mls @ 500 mls/hr IV .CONTINUOUS GORDY Nalbuphine HCl (Nubain) 10 mg IVPUSH Q2H PRN PRN Reason: Pain Ondansetron HCl (Zofran) 4 mg IVPUSH Q4H PRN PRN Reason: Nausea/Vomiting Sodium Chloride (Saline Flush) 10 ml FLUSH ASDIRECTED PRN PRN Reason: Keep Vein Open Discontinued Medications Fentanyl (Sublimaze) Confirm Administered Dose 100 mcg .ROUTE .Neiron-MED ONE Stop: 09/03/19 08:01
--- NOTE | 2019-09-03 12:55 | PCM.DEL ---
L & D Note - General Info Date of Service: 09/03/19 - Delivery Note Labor: Augmented by Oxytocin Delivery Outcome: Livebirth Delivery Method: Spontaneous Vaginal Delivery-Single Infant Delivery Mode: Spontaneous Presentation: Right Occiput Anterior (JUSTUS) Nuchal Cord: None Anesthesia Type: Epidural Amniotic Fluid Description: Clear Episiotomy Type: None Laceration: None Placenta: Intact, Spontaneous Cord: 3 Vessels Estimated Blood Loss: 200 [place]: Bulb Syringe, Stimulated, Warmed, [place] Used, Warmer Used Delivery Comments (Free Text/Narrative):: Patient found to be complete and began pushing. With maternal effort head delivered from an JUSTUS presentation. No nuchal cord present. With gentle downward traction the shoulders and body delivered. placed on maternal abdomen. Cord clamped and cut. Cord blood obtained. Placenta allowed time to separate and expelled intact. Inspection of the perineum showed no lacerations - General Info Date of Service: 09/03/19 - Patient Data Vitals - Most Recent: Last Vital Signs Temp 36.6 C 09/03/19 04:41 Pulse 105 H 09/03/19 04:41 Resp 17 09/03/19 04:41 BP 136/74 09/03/19 04:41 Pulse Ox 98 09/03/19 04:41 Weight - Most Recent: 140.358 kg - Problem List & Annotations (1) 39 weeks gestation of SNOMED Code(s): 94303672 Code(s): Z3A.39 - 39 WEEKS GESTATION OF Status: Acute Current Visit: Yes (2) Spontaneous rupture of amniotic membranes SNOMED Code(s): 925184834 Code(s): OLG1925 - Status: Acute Current Visit: Yes (3) Vaginal delivery SNOMED Code(s): 257171510 Code(s): O80 - ENCOUNTER FOR FULL-TERM UNCOMPLICATED DELIVERY Status: Acute Current Visit: Yes - Problem List Review Problem List Initiated/Reviewed/Updated: Yes - My Orders Last 24 Hours: My Active Orders 09/03/19 03:45 Patient Status [ADT] Routine 09/03/19 04:40 Acetaminophen [Tylenol] 650 mg PO Q4H PRN Calcium Carbonate [Tums] 1,000 mg PO Q2H PRN Nalbuphine [Nubain] 10 mg IVPUSH Q2H PRN Ondansetron [Zofran] 4 mg IVPUSH Q4H PRN Sodium Chloride 0.9% [Saline Flush] 10 ml FLUSH ASDIRECTED PRN Resuscitation Status Routine 09/03/19 04:41 Activity as Tolerated [RC] PFP Communication Order [RC] ASDIRECTED Heart Tones [RC] ASDIRECTED Non Stress Test [RC] PER UNIT ROUTINE Notify Provider [RC] PFP Notify Provider [RC] PRN Peripheral IV Care [RC] . DIRECTED Vital Signs [RC] PER UNIT ROUTINE Electronic Heart Tones Ext w TOCO [WOMSER] Routine Electronic Heart Tones Internal [WOMSER] Per Unit Routine Peripheral IV Insertion Adult [OM.PC] Routine 09/03/19 04:45 Lactated Ringers [Ringers, Lactated] 1,000 ml IV ASDIRECTED Oxytocin/Lactated Ringers [Pitocin in LR 10 Units/1,000 ML] 10 unit in 1,000 ml IV .CONTINUOUS Oxytocin/Lactated Ringers [Pitocin in LR 10 Units/1,000 ML] 10 unit in 1,000 ml IV TITRATE 09/03/19 04:55 RAPID PLASMA REAGIN,RPR [CHEM] Routine 09/03/19 Breakfast Regular Diet [DIET] - Assessment Assessment:: 24 y/o now PPD#0 from - Plan Plan:: * Routine cares * Breast feeding * Discharge home in 1-2 days
[2019-09-03] MEDS ORDERED: Benzocaine/Menthol 20%-0.5% Spray 56 GM Canister TOP PRN (13:28)
[2019-09-03] MEDS ORDERED: Witch Hazel Medicated Pads 40/Jar TOP PRN (13:28)
[2019-09-03] MEDS: Ibuprofen 600 MG Tab PO PRN ×2 (13:43→21:43)
[2019-09-03] MEDS: Docusate Sodium 100 MG Cap PO PRN (16:57)
[2019-09-04] MEDS: Ibuprofen 600 MG Tab PO PRN (05:52)
--- NOTE | 2019-09-04 07:19 | PCM.PNPP ---
- General Info Date of Service: 09/04/19 Functional Status: Reports: Pain Controlled, Tolerating Diet, Ambulating, Urinating - Review of Systems General: Reports: No Symptoms Pulmonary: Reports: No Symptoms Cardiovascular: Reports: No Symptoms Gastrointestinal: Reports: No Symptoms Genitourinary: Reports: No Symptoms Musculoskeletal: Reports: No Symptoms Neurological: Reports: No Symptoms - Patient Data Vital Signs - Most Recent: Last Vital Signs Temp 36.8 C 09/04/19 03:44 Pulse 80 09/04/19 03:44 Resp 16 09/04/19 03:44 BP 136/69 09/04/19 03:44 Pulse Ox 96 09/04/19 03:44 Weight - Most Recent: 140.358 kg Lab Results - Last 24 Hours: Laboratory Results - last 24 hr 09/03/19 Range/Units 04:55 RPR Non-reactive (NONREACTIVE) Med Orders - Current: Current Medications Acetaminophen (Tylenol) 650 mg PO Q4H PRN PRN Reason: mild pain or fever Last Admin: 09/03/19 16:57 Dose: 650 mg Benzocaine/Menthol (Dermoplast Pain Relief [place]) 0 gm TOP ASDIRECTED PRN PRN Reason: Perineal Comfort Measure Docusate Sodium (Colace) 100 mg PO BID PRN PRN Reason: Constipation Last Admin: 09/03/19 16:57 Dose: 100 mg Ibuprofen (Motrin) 600 mg PO Q6H PRN PRN Reason: Mild pain or fever Last Admin: 09/04/19 05:52 Dose: 600 mg [place] (Tucks) 1 pad TOP ASDIRECTED PRN PRN Reason: Perineal Comfort Measure Discontinued Medications Acetaminophen (Tylenol) 650 mg PO Q4H PRN PRN Reason: Pain (Mild 1-3) and fever Bupivacaine HCl (Sensorcaine-Mpf 0.25%) 10 ml .ROUTE .STK-MED ONE Stop: 09/03/19 00:01 Bupivacaine HCl (Sensorcaine-Mpf 0.25%) 10 ml .ROUTE .STK-MED ONE Stop: 09/03/19 00:01 Bupivacaine HCl (Sensorcaine-Mpf 0.25%) 10 ml .ROUTE .STK-MED ONE Stop: 09/03/19 00:01 Calcium Carbonate/Glycine (Tums) 1,000 mg PO Q2H PRN PRN Reason: Indigestion Ephedrine Sulfate (Ephedrine Sulfate) 5 mg IVPUSH ASDIRECTED PRN PRN Reason: Hypotension Fentanyl (Sublimaze) Confirm Administered Dose 100 mcg .ROUTE .[employer] ONE Stop: 09/03/19 08:01 Last Admin: 09/04/19 00:32 Dose: Not Given Fentanyl (Sublimaze) 100 mcg EPIDUR Q3H PRN PRN Reason: Pain Last Admin: 09/03/19 08:43 Dose: 100 mcg Fentanyl/Bupivacaine HCl (Fentanyl/Bupivacaine/Ns 2 Mcg-0.125% 250 Ml) 250 ml EPIDUR CONTINUOUS PRN PRN Reason: Pain Last Admin: 09/03/19 08:44 Dose: 250 ml Lactated Ringer's (Ringers, Lactated) 1,000 mls @ 100 mls/hr IV ASDIRECTED GORDY Last Admin: 09/03/19 08:46 Dose: 100 mls/hr Oxytocin/Lactated Ringer's (Pitocin In Lr 10 Units/1,000 Ml) 10 unit in 1,000 mls @ 12 mls/hr IV TITRATE GORDY; Protocol Last Titration: 09/03/19 09:42 Dose: 4 munits/min, 24 mls/hr Oxytocin/Lactated Ringer's (Pitocin In Lr 10 Units/1,000 Ml) 10 unit in 1,000 mls @ 500 mls/hr IV .CONTINUOUS GORDY Lidocaine HCl (Lidocaine 1%) 2 ml .ROUTE .[employer] ONE Stop: 09/03/19 00:01 Nalbuphine HCl (Nubain) 10 mg IVPUSH Q2H PRN PRN Reason: Pain Ondansetron HCl (Zofran) 4 mg IVPUSH Q4H PRN PRN Reason: Nausea/Vomiting Ondansetron HCl (Zofran) 4 mg IVPUSH ONETIME PRN PRN Reason: Nausea/Vomiting Prenat Multivit/[place]/Iron/Folic Ac ( Plus Iron) 1 each PO DAILY GORDY Sodium Chloride (Saline Flush) 10 ml FLUSH ASDIRECTED PRN PRN Reason: Keep Vein Open - Interaction Disposition, : [place] in Room with Family Interaction: Holding Infant Infant Feeding: Breastfed Infant; Nursed Well Support Person: - Recovery Exam Fundal Tone: Firm Fundal Level: 1 Fingerbreadths Below Umbilicus Fundal Placement: Midline Lochia Amount: Small, Moderate Lochia Color: Rubra/Red Perineum Description: Intact, Minimal Bruising/Swelling Episiotomy/Laceration: Approximated Bladder Status: Voiding Urinary Elimination: Voided - Exam General: Alert, Oriented, Cooperative GI/Abdominal Exam: Soft, Non-Tender Extremities: Normal Inspection Skin: Warm, Dry, Intact - Problem List & Annotations (1) 39 weeks gestation of SNOMED Code(s): 66905460 Code(s): Z3A.39 - 39 WEEKS GESTATION OF Status: Acute Current Visit: Yes (2) Spontaneous rupture of amniotic membranes SNOMED Code(s): 167339967 Code(s): LCD4449 - Status: Acute Current Visit: Yes (3) Vaginal delivery SNOMED Code(s): 362866001 Code(s): O80 - ENCOUNTER FOR FULL-TERM UNCOMPLICATED DELIVERY Status: Acute Current Visit: Yes - Problem List Review Problem List Initiated/Reviewed/Updated: Yes - My Orders Last 24 Hours: My Active Orders 09/03/19 13:28 Activity as Tolerated [RC] PER UNIT ROUTINE Vital Signs [RC] Q6H Acetaminophen [Tylenol] 650 mg PO Q4H PRN Benzocaine/Menthol [Dermoplast Pain Relief [place]] See Dose Instructions TOP ASDIRECTED PRN Docusate Sodium [Colace] 100 mg PO BID PRN Ibuprofen [Motrin] 600 mg PO Q6H PRN [place] [Tucks] 1 pad TOP ASDIRECTED PRN Assess Lochia [WOMSER] Per Unit Routine Assess Uterine Involution [WOMSER] Per Unit Routine Breast Pump [WOMSER] Per Unit Routine Heat Therapy [OM.PC] PRN Ice Therapy [OM.PC] Per Unit Routine Perineal Care [OM.PC] Per Unit Routine Peripheral IV Discontinue [OM.PC] Routine Sitz Bath [OM.PC] Per Unit Routine 09/03/19 Dinner Regular Diet [DIET] 09/04/19 13:28 Heat Therapy [OM.PC] PRN - Assessment Assessment:: 24 y/o now PPD#1 from - Plan Plan:: * Routine cares * Breast feeding * Discharge home today
--- NOTE | 2019-09-04 07:21 | PCM.DCSUM1 ---
Discharge Summary - Discharge Data Discharge Date: 09/04/19 Discharge Disposition: Home, Self-Care 01 Condition: Good - Referral to Home Health Primary Care Physician: Gloria Herrera MD - Discharge Diagnosis/Problem(s) (1) 39 weeks gestation of SNOMED Code(s): 37780935 ICD Code: Z3A.39 - 39 WEEKS GESTATION OF Status: Acute Current Visit: Yes (2) Spontaneous rupture of amniotic membranes SNOMED Code(s): 954892915 ICD Code: [id number] - Status: Acute Current Visit: Yes (3) Vaginal delivery SNOMED Code(s): 712352337 ICD Code: O80 - ENCOUNTER FOR FULL-TERM UNCOMPLICATED DELIVERY Status: Acute Current Visit: Yes - Patient Summary/Data Complications: None Consults: None Recommended Follow-up Testing/Procedures: Follow up in 3 weeks for check Hospital Course: 24 y/o at 39 1/7 wks presented for concerns of SROM. Did require pitocin augmentation. Progressed well to complete dilation and underwent an uncomplicated . See delivery note. she did well and was discharged home on PPD#1 - Patient Instructions Diet: Regular Diet as Tolerated Activity: As Tolerated Activity, Other: Pelvic rest for 6 weeks Driving: May Drive Today Showering/Bathing: May Shower Showering/Bathing, Other: May Bathe Notify Provider of: Fever, Increased Pain, Swelling and Redness, Drainage, Nausea and/or Vomiting - Discharge Plan *PRESCRIPTION DRUG MONITORING PROGRAM REVIEWED*: Not Applicable *COPY OF PRESCRIPTION DRUG MONITORING REPORT IN PATIENT DENNIS: Not Applicable Home Medications: Home Meds VVO486/Iron Fumarate/FA/DSS [ 19 Tablet] 1 each PO DAILY 09/03/19 [ History] Ibuprofen [Motrin] 600 mg PO Q6H PRN tablet 09/04/19 [Rx] Referrals: Gloria Herrera MD [Primary Care Provider] - (3 weeks for check ) - Discharge Summary/Plan Comment DC Time >30 min.: No - Patient Data Vitals - Most Recent: Last Vital Signs Temp 36.8 C 09/04/19 03:44 Pulse 80 09/04/19 03:44 Resp 16 09/04/19 03:44 BP 136/69 09/04/19 03:44 Pulse Ox 96 09/04/19 03:44 Weight - Most Recent: 140.358 kg Lab Results - Last 24 hrs: Laboratory Results - last 24 hr 09/03/19 Range/Units 04:55 RPR Non-reactive (NONREACTIVE) Med Orders - Current: Current Medications Acetaminophen (Tylenol) 650 mg PO Q4H PRN PRN Reason: mild pain or fever Last Admin: 09/03/19 16:57 Dose: 650 mg Benzocaine/Menthol (Dermoplast Pain Relief [place]) 0 gm TOP ASDIRECTED PRN PRN Reason: Perineal Comfort Measure Docusate Sodium (Colace) 100 mg PO BID PRN PRN Reason: Constipation Last Admin: 09/03/19 16:57 Dose: 100 mg Ibuprofen (Motrin) 600 mg PO Q6H PRN PRN Reason: Mild pain or fever Last Admin: 09/04/19 05:52 Dose: 600 mg [place] (Tucks) 1 pad TOP ASDIRECTED PRN PRN Reason: Perineal Comfort Measure Discontinued Medications Acetaminophen (Tylenol) 650 mg PO Q4H PRN PRN Reason: Pain (Mild 1-3) and fever Bupivacaine HCl (Sensorcaine-Mpf 0.25%) 10 ml .ROUTE .STK-MED ONE Stop: 09/03/19 00:01 Bupivacaine HCl (Sensorcaine-Mpf 0.25%) 10 ml .ROUTE .STK-MED ONE Stop: 09/03/19 00:01 Bupivacaine HCl (Sensorcaine-Mpf 0.25%) 10 ml .ROUTE .STK-MED ONE Stop: 09/03/19 00:01 Calcium Carbonate/Glycine (Tums) 1,000 mg PO Q2H PRN PRN Reason: Indigestion Ephedrine Sulfate (Ephedrine Sulfate) 5 mg IVPUSH ASDIRECTED PRN PRN Reason: Hypotension Fentanyl (Sublimaze) Confirm Administered Dose 100 mcg .ROUTE .STK-MED ONE Stop: 09/03/19 08:01 Last Admin: 09/04/19 00:32 Dose: Not Given Fentanyl (Sublimaze) 100 mcg EPIDUR Q3H PRN PRN Reason: Pain Last Admin: 09/03/19 08:43 Dose: 100 mcg Fentanyl/Bupivacaine HCl (Fentanyl/Bupivacaine/Ns 2 Mcg-0.125% 250 Ml) 250 ml EPIDUR CONTINUOUS PRN PRN Reason: Pain Last Admin: 09/03/19 08:44 Dose: 250 ml Lactated Ringer's (Ringers, Lactated) 1,000 mls @ 100 mls/hr IV ASDIRECTED GORDY Last Admin: 09/03/19 08:46 Dose: 100 mls/hr Oxytocin/Lactated Ringer's (Pitocin In Lr 10 Units/1,000 Ml) 10 unit in 1,000 mls @ 12 mls/hr IV TITRATE GORDY; Protocol Last Titration: 09/03/19 09:42 Dose: 4 munits/min, 24 mls/hr Oxytocin/Lactated Ringer's (Pitocin In Lr 10 Units/1,000 Ml) 10 unit in 1,000 mls @ 500 mls/hr IV .CONTINUOUS GORDY Lidocaine HCl (Lidocaine 1%) 2 ml .ROUTE .[facility] ONE Stop: 09/03/19 00:01 Nalbuphine HCl (Nubain) 10 mg IVPUSH Q2H PRN PRN Reason: Pain Ondansetron HCl (Zofran) 4 mg IVPUSH Q4H PRN PRN Reason: Nausea/Vomiting Ondansetron HCl (Zofran) 4 mg IVPUSH ONETIME PRN PRN Reason: Nausea/Vomiting Prenat Multivit/[place]/Iron/Folic Ac ( Plus Iron) 1 each PO DAILY GORDY Sodium Chloride (Saline Flush) 10 ml FLUSH ASDIRECTED PRN PRN Reason: Keep Vein Open
--- NOTE | 2019-09-04 07:45 | PCM48HPAN ---
Post Anesthesia Note - EVALUATION WITHIN 48HRS OF ANESTHETIC Vital Signs in Normal Range: Yes Patient Participated in Evaluation: Yes Respiratory Function Stable: Yes Airway Patent: Yes Cardiovascular Function Stable: Yes Hydration Status Stable: Yes Pain Control Satisfactory: Yes Nausea and Vomiting Control Satisfactory: Yes Mental Status Recovered: Yes Vital Signs: Last Vital Signs Temp 36.8 C 09/04/19 03:44 Pulse 80 09/04/19 03:44 Resp 16 09/04/19 03:44 BP 136/69 09/04/19 03:44 Pulse Ox 96 09/04/19 03:44 - COMMENTS/OBSERVATIONS Free Text/Narrative:: no anesthesia complications noted
[2019-09-04] MEDS ORDERED: Prenatal Multivitamin with Calcium/Folic Acid/Iron Tab PO SCH (09:00)
[2019-09-04] MEDS: Docusate Sodium 100 MG Cap PO PRN (11:37)
[2019-09-04 11:45] VITALS: BP 127/73; PULSE 90
== END 2019-09-04 14:20 | disposition home or self-care (01) | DRG 560 ==
LOC: JD.OBCHECK 02:50 → JD.OB 02:58 → JD.OBCHECK 07:06 → JD.OB 07:07 → OBSVTOIN 12:44 → JD.OB 12:45
PROVIDERS: ADMIT Obstetrics & Gynecology; ATTEND Obstetrics & Gynecology
PROC: 10E0XZZ Delivery of Products of Conception, External Approach (ICD-10-PCS; principal; 2019-09-03)
PROC: 3E033VJ Introduction of Other Hormone into Peripheral Vein, Percutaneous Approach (ICD-10-PCS; 2019-09-03)
PROC: 10907ZC Drainage of Amniotic Fluid, Therapeutic from Products of Conception, Via Natural or Artificial Opening (ICD-10-PCS; 2019-09-03)
DX: O80 Encounter for full-term uncomplicated delivery (principal); Z3A.39 39 weeks gestation of pregnancy; Z37.0 Single live birth
CPT/HCPCS: 36415; 51702; 59025; 59409; 85025; 86592; A9270-GY; J2001; J2590; J3010; J3490; J7120

== ENCOUNTER 2022-12-13 12:07 | Emergency (ER) | payer BC ==
[2022-12-13 12:19] VITALS: BP 123/73; PULSE 67
== END 2022-12-13 14:27 | disposition home or self-care (01) ==
LOC: JD.ED 12:07
DX: O03.9 Complete or unspecified spontaneous abortion without complication (principal)
CPT/HCPCS: 36415; 76817; 76817-26; 80053; 84702; 85025; 86850; 86900; 86901; 99284

== ENCOUNTER 2023-12-28 07:00 | Inpatient (IN) | payer BC ==
[~2023-12-28 07:00] MED LIST changes: -Lidocaine 1% 2 ML SDV ONE
[2023-12-28] MEDS ORDERED: Calcium Carbonate 500 MG Tab.Chew PO PRN (07:18)
[2023-12-28] MEDS ORDERED: Lidocaine 1% 50 ML MDV INJECT PRN (07:18)
[2023-12-28] MEDS ORDERED: Ondansetron 4 MG/2 ML SDV IVPUSH PRN (07:18)
[2023-12-28] MEDS ORDERED: Nalbuphine HCl 10 MG/ 1ML Amp IVPUSH PRN (07:18)
[2023-12-28] MEDS ORDERED: Acetaminophen 325 MG Tab PO PRN ×2 (07:18→17:22)
[2023-12-28] MEDS ORDERED: Oxytocin/Lactated Ringers 30 UNIT/500 ML BAG IV SCH ×2 (07:30→17:22)
[2023-12-28 07:38] LABS: BASOPHILS PERCENT AUTO 0.2 % (0.0-1.0); EOSINOPHILS ABSOLUTE AUTO 0.1 K/mm3 (0.0-0.4); EOSINOPHILS PERCENT AUTO 1.5 % (0.0-6.0); HEMATOCRIT 36.7 % (37.0-47.0); HEMOGLOBIN 12.8 gm/dl (12.0-16.0); IMMATURE GRAN ABSOLUTE AUTO 0.03 K/mm3 (0.00-0.05); IMMATURE GRAN PERCENT AUTO 0.4 % (0.0-0.4); LYMPHOCYTES ABSOLUTE AUTO 1.7 K/mm3 (1.0-4.8); LYMPHOCYTES PERCENT AUTO 20.6 % (24.0-44.0); MEAN CORPUSCULAR HEMOGLOBIN 30.3 pg (28.0-32.0); MEAN CORPUSCULAR HGB CONC 34.9 g/dl (32.0-36.0); MEAN PLATELET VOLUME 11.3 fl (9.4-12.3); MONOCYTES ABSOLUTE AUTO 0.3 K/mm3 (0.0-0.8); MONOCYTES PERCENT AUTO 4.1 % (0.0-8.0); NEUTROPHILS PERCENT AUTO 73.2 % (41.0-71.0); PLATELET COUNT,PLT 230 K/mm3 (150-400); RED BLOOD CELL COUNT 4.22 M/mm3 (4.10-5.30); WHITE BLOOD CELL COUNT,WBC 8.14 K/mm3 (3.9-11.3)
[2023-12-28] MEDS ORDERED: Nalbuphine 10 MG/ML Syringe IVPUSH PRN (08:04)
[2023-12-28] MEDS: Lactated Ringers 1,000 ML IV SCH (09:33)
[2023-12-28 09:37] LABS: A/G RATIO 0.7 (1-2); ALBUMIN 2.7 g/dl (3.4-5.0); ANION GAP 14.8 (5-15); BILIRUBIN TOTAL 0.6 mg/dL (0.2-1.0); BUN/CREATININE RATIO 8.6 (14-18); CALCIUM 9.1 mg/dL (8.5-10.1); CREATININE 0.7 mg/dL (0.55-1.02); EST CRCL DRUG DOSING (CG) 116.35 mL/min; POTASSIUM,K 3.8 mEq/L (3.5-5.1); PROTEIN TOTAL,TP 6.5 g/dl (6.4-8.2)
[2023-12-28] MEDS ORDERED: ePHEDrine 50 MG/ML SDV IVPUSH PRN (09:59)
[2023-12-28] MEDS ORDERED: diphenhydrAMINE 50 MG/ML SDV IVPUSH PRN (09:59)
[2023-12-28] MEDS: fentaNYL 100 MCG/2 ML SDV EPIDUR PRN (10:12)
[2023-12-28] MEDS: Bupivacaine/fentaNYL/NS 100 ML Bag EPIDUR PRN (10:13)
[2023-12-28] MEDS: Oxytocin/Lactated Ringers 30 UNIT/500 ML BAG IV SCH (11:02)
[2023-12-28 11:56] LABS: CREATININE,URINE RAND 230.8 mg/dL (30.0-125.0); PROTEIN CREATININE RATIO,URINE 31.2 mg/g (0-149); PROTEIN,URINE RANDOM 7.2 mg/dL (0.0-11.8)
[2023-12-28] MEDS ORDERED: Magnesium Hydroxide 400 MG/5 ML Susp 30 ML Cup PO PRN (17:22)
[2023-12-28] MEDS ORDERED: Hydrocortisone Acetate 25 MG Supp RECTAL PRN (17:22)
[2023-12-28] MEDS ORDERED: Docusate Sodium 100 MG Cap PO PRN (17:22)
[2023-12-28] MEDS: Benzocaine/Menthol 20%-0.5% Spray 78 GM Cannister TOP PRN (17:43)
[2023-12-28] MEDS: Witch Hazel Medicated Pads 40/Jar TOP PRN (17:43)
[2023-12-29] MEDS: Ibuprofen 600 MG Tab PO PRN (04:15)
[2023-12-29] MEDS: Prenatal Multivitamin with Calcium/Folic Acid/Iron Tab PO SCH (09:44)
[2023-12-29] MEDS: FLUoxetine 20 MG Cap PO SCH (12:30)
[2023-12-29 16:27] VITALS: BP 134/75; PULSE 99
== END 2023-12-29 16:00 | disposition home or self-care (01) | DRG 560 ==
LOC: JD.OB 07:00 → OBSVTOIN 14:14 → JD.OB 14:15
PROVIDERS: ADMIT Obstetrics & Gynecology; ATTEND Obstetrics & Gynecology
PROC: 10E0XZZ Delivery of Products of Conception, External Approach (ICD-10-PCS; principal; 2023-12-28)
PROC: 3E033VJ Introduction of Other Hormone into Peripheral Vein, Percutaneous Approach (ICD-10-PCS; 2023-12-28)
PROC: 10907ZC Drainage of Amniotic Fluid, Therapeutic from Products of Conception, Via Natural or Artificial Opening (ICD-10-PCS; 2023-12-28)
PROC: 3E0P7VZ Introduction of Hormone into Female Reproductive, Via Natural or Artificial Opening (ICD-10-PCS; 2023-12-28)
PROC: 3E0R3BZ Introduction of Anesthetic Agent into Spinal Canal, Percutaneous Approach (ICD-10-PCS; 2023-12-28)
PROC: 00HU33Z Insertion of Infusion Device into Spinal Canal, Percutaneous Approach (ICD-10-PCS; 2023-12-28)
DX: O67.9 Intrapartum hemorrhage, unspecified (principal); Z37.0 Single live birth; O99.344 Other mental disorders complicating childbirth; F41.9 Anxiety disorder, unspecified; F32.A Depression, unspecified; O99.214 Obesity complicating childbirth; O70.0 First degree perineal laceration during delivery; O69.81X0 Labor and delivery complicated by cord around neck, without compression, not applicable or unspecified; Z3A.39 39 weeks gestation of pregnancy; Z90.49 Acquired absence of other specified parts of digestive tract; Z98.890 Other specified postprocedural states; Z87.891 Personal history of nicotine dependence
CPT/HCPCS: 36415; 51702; 59025; 59409; 80053; 82570; 83615; 84156; 85025; 86592; A9270-GY; J3010; J3490; J7120; J7999